=== PATIENT | male | born 1965 | race Caucasian/White ===

== ENCOUNTER 2020-11-10 11:02 | Emergency (ER) | payer OTHER ==
[~2020-11-10] VITALS: Ht 180.3 cm; Wt 84.1 kg
[2020-11-10 11:06] VITALS: BP 150/99; TEMP 97.6
[2020-11-10] MEDS ORDERED: NORCO 325 MG-51 TAB PO (11:31)
[2020-11-10] MEDS ORDERED: MOBIC15 MG PO (11:31)
[2020-11-10] MEDS ORDERED: VOLTAREN GEL 1%1 TU TP (11:31)
[2020-11-10 12:17] VITALS: PULSE 75
== END 2020-11-10 12:17 | disposition home or self-care (01) ==
LOC: COL.ER 11:02
DX: M75.91 Shoulder lesion, unspecified, right shoulder (principal); F17.200 Nicotine dependence, unspecified, uncomplicated